=== PATIENT | male | born 1950 | race Caucasian/White ===

== ENCOUNTER 2016-11-01 06:32 | Observation (INO) | payer OTHER, MEDICARE | END 2016-11-02 12:53 | disposition home or self-care (01) | LOC: CATH 06:32 → 2N 09:57 | DX: I25.10 Atherosclerotic heart disease of native coronary artery without angina pectoris (principal); R06.02 Shortness of breath; I10 Essential (primary) hypertension; R53.83 Other fatigue; R09.89 Other specified symptoms and signs involving the circulatory and respiratory systems; E78.00 Pure hypercholesterolemia, unspecified; Z95.5 Presence of coronary angioplasty implant and graft ==

== ENCOUNTER 2017-05-13 05:15 | Inpatient (IN) | payer OTHER, MEDICARE ==
[2017-05-05 12:56] LABS: HEMATOCRIT 50.1 % (42.0-52.0); HEMOGLOBIN 17.4 gm/dL (14.0-18.0); MCH 32.3 pg (26.0-34.0); MCHC 34.8 g/dL (28.0-37.0); MCV 92.9 fL (80.0-100.0); RBC 5.39 mil/uL (4.50-6.00); RDW 13.9 % (10.5-14.5); URINE BILIRUBIN NEGATIVE (Negative); URINE BLOOD TRACE (Negative); URINE CLARITY CLEAR; URINE COLOR YELLOW; URINE GLUCOSE-RANDOM* NEGATIVE (Negative); URINE KETONES NEGATIVE (Negative); URINE LEUKOCYTES-REFLEX NEGATIVE (Negative); URINE NITRITE-REFLEX NEGATIVE (Negative); URINE PROTEIN (DIPSTICK) NEGATIVE (Negative); URINE SPECIFIC GRAVITY <= 1.005 (1.005-1.035); URINE UROBILINOGEN 0.2 E.U./dl (0.2-1.0)
[2017-05-05 13:03] LABS: ALBUMIN 4.2 g/dL (3.4-5.0); CALCIUM 9.1 mg/dL (8.5-10.1); CREATININE 1.1 mg/dL (0.7-1.3); POTASSIUM 4.1 mmol/L (3.5-5.1)
[2017-05-05 13:09] LABS: PROTIME 10.7 Seconds (9.3-11.4)
[~2017-05-13] VITALS: Ht 180.3 cm; Wt 97.5 kg
--- NOTE | ~2017-05-13 | O ---
[facility] [place] [address] OPERATIVE REPORT Name: KRISTOFER PEARCE Room #: 405-P [facility] IN M.R.#: [id number] Admission: 05/13/17 Attend Phys: Storm Spence MD Discharge: 05/14/17 Date of : 52 Report #: [id number] THIS REPORT FOR: //name// CC: Irasema Spence DATE OF SERVICE: 05/13/2017 PREOPERATIVE DIAGNOSIS: Left hip osteoarthritis. POSTOPERATIVE DIAGNOSIS: Left hip osteoarthritis. PROCEDURE: Left total hip arthroplasty. SURGEON: Storm Spence M.D. BOOT AND SHOE REPAIRMAN: Sandrita Leary PA-C. INDICATIONS FOR BOOT AND SHOE REPAIRMAN: Throughout the case, extensive retraction and manipulation of the hip including dislocation and reduction was required. This was afforded to me by my web production assistant. ANESTHESIA: General endotracheal. IMPLANTS: Francois and Nephew size 56 R3 acetabular cup, a size 16 high offset Synergy press fit stem and a size 40 -4 Oxinium head. ESTIMATED BLOOD LOSS: 100 mL. COMPLICATIONS: None. SPECIMENS: None. CONDITION UPON LEAVING THE OR: Stable. INDICATION FOR PROCEDURE: The patient is a 66-year-old gentleman with severe left hip osteoarthritis. He had failed conservative treatment for this and after discussion with him, he elected for left total hip arthroplasty. DESCRIPTION OF PROCEDURE: Risks, benefits, alternatives, complications were discussed in detail with the patient including but not limited to risk of anesthesia, risk of damage to nerves, arteries, blood vessels, risk for infection, bleeding, risk for leg length discrepancy, instability and need for reoperation. Informed consent was obtained from the patient. Left hip was appropriately marked in the preoperative holding area. He was brought to the operating room and placed in the supine position on the operating room table. [address] [address] OPERATIVE REPORT Name: KRISTOFER PEARCE JR Room #: 405-P [facility] IN M.R.#: [id number] Admission: 05/13/17 Attend Phys: Storm Spence MD Discharge: 05/14/17 Date of : 52 Report #: [id number] General endotracheal anesthesia was induced without complication. He was then placed in the right lateral decubitus position with the left hip uppermost. Left hip and lower extremity were prepped and draped in normal sterile fashion. Timeout was performed properly identifying the patient, procedure as well as the instrumentation. All in the operating room were in agreement. Standard posterior approach to the hip was made with 10 blade through the skin. Dissection was taken down to the fascia with Bovie cautery and this was cleaned off with Contreras elevator. Fresh 10 blade was used to make a fascial incision. This was taken proximally and distally with curved Zhou scissor and Charnley retractor was placed. Trochanteric bursa was taken down with Bovie and the piriformis tendon was identified, tagged and taken down with Bovie. Short external rotators were also taken down with Bovie cautery. Capsulotomy was made and capsule ends were tagged for later repair. The hip was dislocated and there was extensive osteoarthritic change of the femoral head. Femoral neck cut was then made 1 cm proximal to lesser trochanter based on preoperative templating and the femoral head was removed. Deep acetabular retractors were placed and the labrum was removed sharply. Pulvinar was removed with Bovie cautery. The acetabulum was then sequentially reamed up to a size 56, at which point there was excellent bleeding cancellous bone. This was trialed with a size 55 cup and found to have a good fit. A final size 56 R3 acetabular cup was placed and one acetabular screw was placed for backup fixation. Polyethylene liner for a 40 head was placed. After this, attention was turned to the femur. This was reamed and broached up to a size 16, at which point the size 16 broach was stable. This was trialed with a high offset neck and a 40+0 head. Hip was reduced, taken through range of motion, found to be stable, found to have equal leg lengths. Hip was dislocated and broach was removed. Final size 16 high offset Synergy press fit stem was placed. This did not seat quite to the level of the broach and yet was stable. We then trialed a size 40 head with a -4 neck. Hip was reduced, taken through range of motion, found to be stable, found to have equal leg lengths. Hip was dislocated and a final size 40 -4 Oxinium head was placed. Hip was reduced, taken through range of motion, found to be stable, found to have equal leg lengths. A periarticular injection consisting of morphine, ropivacaine, epinephrine and Toradol was placed in the hip joint tissues. 1 gram of vancomycin was placed deep in the hip joint capsule and piriformis were repaired with 0 FiberWire. Fascia was closed with 0 Vicryl, skin was closed with 2-0 Vicryl, 3-0 Monocryl and Dermabond with a CARISSA dressing applied. The patient tolerated this procedure well and went to the recovery room under the care of anesthesia postoperatively. <ELECTRONICALLY SIGNED> By: Storm Spence MD 05/31/17 0931 [id number] [id number] Storm Spence MD /nt
--- NOTE | ~2017-05-13 | O ---
[facility] [place] [address] OPERATIVE REPORT Name: KRISTOFER PEARCE Room #: 405-P [facility] IN M.R.#: [id number] Admission: 05/13/17 Attend Phys: Storm Spence MD Discharge: 05/14/17 Date of : 52 Report #: [id number] THIS REPORT FOR: //name// CC: Irasema Spence DATE OF SERVICE: 05/13/2017 PREOPERATIVE DIAGNOSIS: Left hip osteoarthritis. POSTOPERATIVE DIAGNOSIS: Left hip osteoarthritis. PROCEDURE: Left total hip arthroplasty. SURGEON: Storm Spence MD PLASTIC SHEETING CUTTER: Sandrita Leary PA-C INDICATIONS FOR PLASTIC SHEETING CUTTER: Throughout the case extensive retraction and manipulation of the hip including dislocation and reduction was required. This was afforded to me by my administrative office assistant. ANESTHESIA: General endotracheal. IMPLANTS: Francois and Nephew size 16 high offset Synergy press fit stem, a size 56 R3 acetabular cup with 1 acetabular screw, a size 40 -4 Oxinium head. ESTIMATED BLOOD LOSS: 100 mL. COMPLICATIONS: None. SPECIMENS: None. CONDITION UPON LEAVING THE OR: Stable. INDICATION FOR PROCEDURE: The patient is a 66-year-old gentleman with severe left hip osteoarthritis. He had failed conservative treatment for this. After discussion with him, he elected for left total hip arthroplasty. DESCRIPTION OF PROCEDURE: Risks, benefits, alternatives, complications were discussed in detail with the patient including but not limited to risk of anesthesia, risk of damage to nerves, arteries, blood vessels, risk for infection, bleeding, risk for continued hip pain, leg length discrepancy, instability and need for reoperation. Informed consent was obtained from the patient. Left hip was appropriately marked in the preoperative holding area. IV Ancef given for preoperative antibiotics. He was brought to the operating [facility] [address] [place] [address] OPERATIVE REPORT Name: KRISTOFER PEARCE JR Room #: 405-P [facility] IN M.R.#: [id number] Admission: 05/13/17 Attend Phys: Storm Spence MD Discharge: 05/14/17 Date of : 52 Report #: [id number] room and placed in supine position on operating room table. General endotracheal anesthesia was induced without complication. He was then placed in the right lateral decubitus position with the left hip uppermost. Left hip and lower extremity were prepped and draped in normal sterile fashion. Timeout was performed properly identifying the patient and procedure as well as the instrumentation and implants. All in the operating room were in agreement. Standard posterior approach to the hip was made with 10 blade through the skin. Dissection was taken down to the fascia with Bovie cautery and Contreras elevator was used to clean off fascia. A fresh #10 blade was used to make a fascial incision. This was taken proximally and distally with curved Zhou scissor. Charnley retractor was placed. Trochanteric bursa was taken down with Bovie cautery. Piriformis tendon was identified, tagged and taken down with Bovie. Short external rotators were also taken down with Bovie cautery. Capsulotomy was made and capsule ends were tagged for later repair. The hip was dislocated and there was extensive osteoarthritic change of the femoral head. Femoral neck cut was made 1 cm proximal to the lesser trochanter based on preoperative templating and the femoral head was removed. Deep acetabular retractors were placed and the labrum was removed sharply. Pulvinar was removed with Bovie cautery. Acetabulum was sequentially reamed up to a size 56 at which point, there was excellent bleeding cancellous bone. A size 55 trial cup was placed, found to have a good fit. A final size 56 R3 acetabular cup was placed and seated. One acetabular screw was placed for backup fixation and polyethylene liner for size 40 head was placed. Attention was turned to the femur. This was reamed and broached up to a size 16, at which point, the size 16 broach was stable. This was trialed with a high offset neck and a 40+0 head. Hip was reduced, taken through range of motion, found to be stable, found to have equal leg lengths. Hip was dislocated. The broach was removed and a final size 16 high offset Synergy press fit stem was placed. This did not seat quite as far the broach and so this was trialed with a 40 -4 head. Hip was reduced, taken through range of motion, found to be stable, found to have equal leg lengths. Hip was dislocated and a final size 40 -4 Oxinium head was placed. Hip was reduced, taken through range of motion, found to be stable, found to have equal leg lengths. Periarticular injection consisting of morphine, ropivacaine, epinephrine and Toradol was placed around the hip joint. A gram of vancomycin was placed deep in the hip joint. The capsule and piriformis were repaired with 0 FiberWire. The fascia was closed with 0 Vicryl, skin was closed with 2-0 Vicryl, 3-0 Monocryl. Dermabond and CARISSA dressing was applied. The patient tolerated this procedure well and went to recovery room under care of anesthesia postoperatively. <ELECTRONICALLY SIGNED> By: Storm Spence MD 05/31/17 0931 1704 1752 Storm Spence MD /nt
[~2017-05-13 05:15] MED LIST: ASPIR 8181 MG PO; ASPIRIN325 PO; ATORVASTATIN CA40 MG PO; BENADRYL25 MG PO; BYSTOLIC 5 MG5 M1 PO; ECHINACEA125 MG PO; EFFIENT10 MG PO; IBUPROFEN 200200 M1 PO; LIPITOR 20 MG T20 M1 PO; LITTLE REMEDIE118 M1 PO; MULLEIN; PLAVIX 75 MG TA75 M1 PO; TOPROL XL25 MG PO; VITAMIN C60 MG PO; VITAMIN D1000 UNI1 PO; VITAMIN D35000 UNI2 PO
[2017-05-13 07:00] VITALS: BP 145/86
[2017-05-13 15:07] VITALS: BP 147/81
[2017-05-13 15:15] VITALS: BP 152/91
[2017-05-13 15:30] VITALS: BP 138/84
[2017-05-13 16:30] VITALS: BP 143/88
[2017-05-13 20:37] VITALS: BP 128/76
[2017-05-14 00:12] VITALS: BP 122/68
[2017-05-14 04:27] VITALS: BP 122/69
[2017-05-14 05:30] LABS: ABSOLUTE NEUTROPHILS 11.8 thou/uL (1.4-8.2); BASOPHILS 0.1 % (0.0-2.0); HEMOGLOBIN 13.1 gm/dL (14.0-18.0); LYMPHOCYTES 11.7 % (24.0-44.0); MCH 32.1 pg (26.0-34.0); MCHC 34.4 g/dL (28.0-37.0); MCV 93.4 fL (80.0-100.0); MONOCYTES 11.3 % (1.0-8.0); PLATELET COUNT 171 thou/uL (150-400); POLYS 76.9 % (36.0-66.0); RBC 4.06 mil/uL (4.50-6.00); RDW 13.6 % (10.5-14.5); WBC 15.3 thou/uL (4.0-11.0)
[2017-05-14 05:52] LABS: ALBUMIN 3.4 g/dL (3.4-5.0); CALCIUM 8.2 mg/dL (8.5-10.1); CREATININE 1.3 mg/dL (0.7-1.3); MAGNESIUM 1.6 mg/dL (1.8-2.4); POTASSIUM 4.1 mmol/L (3.5-5.1); TOTAL BILIRUBIN 0.9 mg/dL (<0.1-1.0); TOTAL PROTEIN 6.2 g/dL (6.4-8.2)
[2017-05-14 08:08] VITALS: BP 120/63
[2017-05-14 12:26] VITALS: BP 122/63
[2017-05-14 15:29] VITALS: BP 140/71
[2017-05-14 17:17] VITALS: BP 140/71
== END 2017-05-14 18:00 | disposition home or self-care (01) | DRG 470 ==
LOC: 4N 05:15 → TBA 05:15 → PRE 05:26 → 4N 14:52 → ENTRNSPT 05-14 17:29 → 4N 05-14 18:00
PROVIDERS: Nurse Practitioner; Orthopaedic Surgery
PROC: 0SRB0JZ Replacement of Left Hip Joint with Synthetic Substitute, Open Approach (ICD-10-PCS; principal; 2017-05-13)
DX: M16.12 Unilateral primary osteoarthritis, left hip (principal); I10 Essential (primary) hypertension; E78.5 Hyperlipidemia, unspecified; I25.10 Atherosclerotic heart disease of native coronary artery without angina pectoris; N40.0 Benign prostatic hyperplasia without lower urinary tract symptoms; M51.36 Other intervertebral disc degeneration, lumbar region; E56.9 Vitamin deficiency, unspecified; Z95.5 Presence of coronary angioplasty implant and graft; Z79.899 Other long term (current) drug therapy; Z79.82 Long term (current) use of aspirin
CPT/HCPCS: 10790; 50010; 50101; 50382; 50414; 51771; 53000; 53078; 53368; 54118; 56524; 56527; 56528; 56530; 57095; 62110; 62900; 70005

== ENCOUNTER 2019-04-21 10:04 | Inpatient (IN) | payer OTHER, MEDICARE ==
[2019-04-08 13:06] LABS: HEMATOCRIT 50.4 % (42.0-52.0); HEMOGLOBIN 17.3 gm/dL (14.0-18.0); MCH 32.3 pg (26.0-34.0); MCHC 34.3 g/dL (28.0-37.0); MCV 94.3 fL (80.0-100.0); RBC 5.34 mil/uL (4.50-6.00); RDW 13.2 % (10.5-14.5); WBC 6.2 thou/uL (4.0-11.0)
[2019-04-08 13:11] LABS: URINE BILIRUBIN NEGATIVE (Negative); URINE BLOOD NEGATIVE (Negative); URINE CLARITY CLEAR; URINE COLOR YELLOW; URINE GLUCOSE-RANDOM* NEGATIVE (Negative); URINE KETONES NEGATIVE (Negative); URINE LEUKOCYTES-REFLEX NEGATIVE (Negative); URINE NITRITE-REFLEX NEGATIVE (Negative); URINE PROTEIN (DIPSTICK) NEGATIVE (Negative); URINE UROBILINOGEN 0.2 E.U./dl (0.2-1.0)
[2019-04-08 13:19] LABS: INR 1.1; PROTIME 10.9 Seconds (9.3-11.4)
[2019-04-08 13:20] LABS: ALBUMIN 4.4 g/dL (3.4-5.0); CALCIUM 8.9 mg/dL (8.5-10.1); CREATININE 1.2 mg/dL (0.7-1.3); POTASSIUM 4.3 mmol/L (3.5-5.1)
[~2019-04-21] VITALS: Ht 180.3 cm; Wt 101.2 kg
--- NOTE | ~2019-04-21 | O ---
[facility] [place] [address] OPERATIVE REPORT Name: KRISTOFER PEARCE Room #: 150-6 ADM IN M.R.#: [id number] Admission: 04/21/19 Attend Phys: Storm Spence MD Discharge: Date of : 52 Report #: [id number] THIS REPORT FOR: cc: Irasema Campuzano MD, Jennifer S. MD Abraham,Storm Britt MD ~ CC: Irasema Spence DATE OF SERVICE: 04/21/2019 PREOPERATIVE DIAGNOSIS: Right hip osteoarthritis. POSTOPERATIVE DIAGNOSIS: Right hip osteoarthritis. PROCEDURE: Right total hip arthroplasty. SURGEON: Storm Spence MD. SERVICE ADVOCATE CONTACT: Sandrita Leary PA-C. INDICATIONS FOR SERVICE ADVOCATE CONTACT: Throughout the case, extensive retraction and manipulation of the hip was required. This was afforded to me by my assistant county engineer. ANESTHESIA: LMA. IMPLANTS: Francois and Nephew size 16 high offset Synergy press fit stem, a size 58 R3 acetabular cup with one acetabular screw and a size 40 -4 Oxinium head. ESTIMATED BLOOD LOSS: 50 mL. COMPLICATIONS: None. SPECIMENS: None. CONDITION UPON LEAVING THE OPERATING ROOM: Stable. INDICATIONS FOR PROCEDURE: The patient is a 68-year-old gentleman with severe right hip osteoarthritis. He had failed conservative measures for this and after discussion with him, he elected for right total hip arthroplasty. DESCRIPTION OF PROCEDURE: Risks, benefits, alternatives, complications were discussed in detail with the patient including but not limited to risk of anesthesia, risk of damage to nerves, arteries, blood vessels, risk for infection, bleeding, risk for continued hip pain, leg length discrepancy, instability and need for reoperation. Informed consent was obtained from the [facility] [place] [address] OPERATIVE REPORT Name: RAMSESKRISTOFERDENEEN MCKEON Room #: 150-6 ADM IN M.R.#: [id number] Admission: 04/21/19 Attend Phys: Storm Spence MD Discharge: Date of : 52 Report #: [id number] patient. Right hip was appropriately marked in the preoperative holding area. IV Ancef was given for preoperative antibiotics. He was brought to the operating room and placed in supine position on operating room table. LMA anesthesia was induced without complication. He was then placed in the left lateral decubitus position with the right hip uppermost. Right hip and lower extremity were prepped and draped in normal sterile fashion. Timeout was performed properly identifying the patient and procedure as well as the instrumentation and implants. All in the operating room were in agreement. Standard posterior approach to the hip was made with 10 blade through the skin. Dissection was taken down to the fascia with Bovie cautery. A fresh #10 blade was used to make a fascial incision. This was taken proximally and distally with curved Zhou scissor. Charnley retractor was placed. Trochanteric bursa was taken down with Bovie cautery. Piriformis tendon was identified, tagged and taken down with Bovie. Short external rotators were also taken down with Bovie cautery. Capsulotomy was made and capsule ends were tagged for later repair. Hip was dislocated and there was extensive osteoarthritic change of the femoral head. Femoral neck cut was made 1 cm proximal to lesser trochanter based on preoperative templating and the femoral head was removed. Deep acetabular retractors were placed. Labrum was removed sharply. Pulvinar was removed with Bovie cautery. The acetabulum was then sequentially reamed up to a size 58, at which point, there was excellent bleeding cancellous bone. A size 57 trial cup was placed, found to have a good fit. A final size 58 R3 acetabular cup was placed and seated. One acetabular screw was placed for backup fixation and a polyethylene liner for a 40 head was placed. Attention was then turned to the femur. This was reamed and broached up to a size 16, at which point, the size 16 broach was stable, was trialed with a 40+0 head. Hip was reduced, taken through range of motion, found to be stable, found to have equal leg lengths. Hip was dislocated. Broach was removed and final size 16 high offset Synergy press fit stem was placed and seated. This did not seat quite as far as the broach and so this was trialed with a 40 -4 head. Hip was reduced, taken through range of motion, found to be stable, found to have equal leg lengths. Hip was dislocated one last time and the trial head was removed and final size 40 -4 Oxinium head was placed. Hip was reduced, taken through range of motion, found to be stable, found to have equal leg lengths. The wound was thoroughly irrigated with normal saline. A periarticular injection consisting of morphine, ropivacaine, epinephrine and Toradol was placed around the hip joint capsule. A gram of vancomycin was placed deep in the joint, the capsule and piriformis were repaired with 0 FiberWire. The fascia was closed with 0 Vicryl, skin was closed with 2-0 Vicryl, 3-0 Monocryl. Dermabond and a CARISSA dressing was applied. The patient tolerated this procedure well and went to recovery room under care of anesthesia postoperatively. By: 1448 [id number] Storm Spence MD /nt
[~2019-04-21 10:04] MED LIST changes: +ASPIR-LOW81 MG PO; +LEVO-T25 MCG PO; +LOSARTAN POTAS100 MG PO; +MELATONIN5 M4 PO; +SERTRALINE HCL100 MG PO; +VITAMIN D32000 UNIT PO
[2019-04-21 12:01] VITALS: BP 142/736
[2019-04-21 19:45] VITALS: BP 153/85
--- NOTE | 2019-04-22 03:57 | NUR ---
ASSESSMENT" PT REMAIN ALERT AND ORIENT TIMES FOUR. FORGETFUL AT TIMES TO SITUATION. CARISSA DRESSING INTACT. UP WITH MINIMAL ASSISTANCE TO THE BR AND WALKER. VSS, AFEBRILE. C/O RIGHT HIP PAIN. PRN PAIN MEDICATION GIVEN WITH GOOD RESULTS. PT WAS AWAKE MOST OF THE NIGHT IN SPITE OF GETTING AMBIEN EARLIER. AT THE BEDSIDE. VSS, AFEBRILE. WBAT, SLOW PROGRESS TOWARDS DC GOALS, WILL CONTINUE TO MONITOR.
[2019-04-22 04:15] VITALS: BP 116/81
[2019-04-22 06:01] LABS: HEMATOCRIT 40.3 % (42.0-52.0); HEMOGLOBIN 13.6 gm/dL (14.0-18.0); MCH 31.9 pg (26.0-34.0); MCHC 33.7 g/dL (28.0-37.0); MCV 94.9 fL (80.0-100.0); RBC 4.25 mil/uL (4.50-6.00); RDW 12.7 % (10.5-14.5); WBC 10.9 thou/uL (4.0-11.0)
--- NOTE | 2019-04-22 09:00 | NUR ---
chart review. cm visited with pt and at bedside. intro to transition of care and dcp. pt preferrs going by prabha. " live house with scott, safe and have support if needs. did outpt therapy with hip before. etc therapy in [place] on 04/26/2019. 3 steps in from front door, 2 steps in from garage. don't go up stair. sleep on couch because have to sleep with head up. have cane, that is what used after hip. might need walker. plan on going home today after 2 teats with therapy. independent at home. drives vehicle. set up medication and i take them. "/ prabha. will cont following as needed for dc needs. possible will need FWW vs cane.
[2019-04-22] MEDS ORDERED: NEURONTIN 300300 M1 PO (11:39)
[2019-04-22 11:45] VITALS: BP 116/81
--- NOTE | 2019-04-22 13:48 | NUR ---
PT CARE ASSUMED AT 0700. A&Ox4. PT IN ROOM. PT AWAITING AFTERNOON PT TO DISCHARGE. PENDING DISCHARGE IN PLACE. PT IV REMOVED. FLUIDS DISCONTINUED. PT UP WITHOUT A OLIVEROS. VERY MOBILE. NO PAIN.
== END 2019-04-22 14:30 | disposition home or self-care (01) | DRG 470 ==
LOC: 4S 10:04 → PRE 10:04 → TBA 10:04 → 4S 19:10 → TBA 22:30 → ENTRNSPT 04-22 14:13 → EDTRNSPTSTS 04-22 14:21 → 4S 04-22 14:30
PROVIDERS: ADMIT Orthopaedic Surgery
PROC: 0SR906A Replacement of Right Hip Joint with Oxidized Zirconium on Polyethylene Synthetic Substitute, Uncemented, Open Approach (ICD-10-PCS; principal; 2019-04-21)
DX: M16.11 Unilateral primary osteoarthritis, right hip (principal); J30.2 Other seasonal allergic rhinitis; M54.9 Dorsalgia, unspecified; Z79.82 Long term (current) use of aspirin; Z79.899 Other long term (current) drug therapy; Z88.8 Allergy status to other drugs, medicaments and biological substances
CPT/HCPCS: 10102; 50010; 50101; 50382; 50415; 53000; 53078; 53368; 54118; 56524; 56527; 56528; 56530; 57095; 57103; 62110; 62900; 70005

== ENCOUNTER → 2019-06-24 | Outpatient (CLI) | payer OTHER, MEDICARE ==
[~2019-06-24] MED LIST changes: +NEURONTIN 300300 M1 PO
== END ==
LOC: SJCVC 10:15
DX: R94.31 Abnormal electrocardiogram [ECG] [EKG] (principal); I21.29 ST elevation (STEMI) myocardial infarction involving other sites; I25.10 Atherosclerotic heart disease of native coronary artery without angina pectoris; E78.00 Pure hypercholesterolemia, unspecified; I10 Essential (primary) hypertension; I65.23 Occlusion and stenosis of bilateral carotid arteries; Z95.5 Presence of coronary angioplasty implant and graft

== ENCOUNTER → 2020-04-04 | Outpatient (CLI) | payer OTHER, MEDICARE | LOC: SJCVCIMAG 09:46 | PROVIDERS: ATTEND Internal Medicine Cardiovascular Disease | DX: I25.10 Atherosclerotic heart disease of native coronary artery without angina pectoris (principal); E78.00 Pure hypercholesterolemia, unspecified; Z79.899 Other long term (current) drug therapy ==